=== PATIENT | female | born 1975 | race Caucasian/White ===

== ENCOUNTER 2017-06-12 09:34 | Inpatient (IN) | payer BC, OTHER ==
[~2017-06-12] VITALS: Ht 157.5 cm; Wt 74.4 kg
--- NOTE | 2017-06-12 18:11 | NUR ---
PRE ADMISSION Pt 41 y/o female admitted in intake. Pt came from home. Pt alert and oriented to name, place, and time. Perrla. Skin warm and dry to touch. Respirations even and unlabored. Bilateral hand tremors noted slightly. Pt appears anxious with pressured speech noted. Pt appears slightly disheveled. Initial cows=5. Pt was seen by MD. Educated pt on unit rules with acknowledgement. No distress noted. as=346/90 t=98.1 p=62 r=18 z4=830%@ra. Pt denies any history of sz. Pt states just recently dx with fibromyalgia this month 2016.
[2017-06-12] MEDS ORDERED: NICOTINE POLACRILEX 4 MG GUM-PK OF TEN BC PRN (18:30)
[2017-06-12] MEDS ORDERED: METHOCARBAMOL 750 MG TABLET PO PRN (18:30)
[2017-06-12] MEDS ORDERED: LORAZEPAM 1 MG TABLET PO PRN (18:30)
[2017-06-12] MEDS ORDERED: BUPRENORPHINE HCL 2 MG TAB.SUBL SL PRN (18:30)
[2017-06-12] MEDS ORDERED: ONDANSETRON 4 MG/2 ML VIAL IM PRN (18:30)
[2017-06-12] MEDS ORDERED: hydrALAZINE HCL 50 MG TABLET PO PRN (18:30)
[2017-06-12] MEDS ORDERED: LOPERAMIDE HCL 2 MG CAPSULE PO PRN ×2 (18:30)
[2017-06-12] MEDS ORDERED: NICOTINE 14 MG/24HR PATCH TD PRN (18:30)
[2017-06-12] MEDS ORDERED: MAGNESIUM HYDROXIDE 30 ML LIQUID UDC PO PRN (18:30)
[2017-06-12] MEDS ORDERED: DOCUSATE SODIUM 250 MG CAPSULE PO PRN (18:30)
[2017-06-12] MEDS ORDERED: DICYCLOMINE HCL 20 MG TABLET PO PRN (18:30)
[2017-06-12] MEDS ORDERED: MIRALAX 17 GM POWD.PACK PO PRN (18:30)
[2017-06-12 18:41] LABS: BASOPHILS # (AUTO) 0.1 K/uL (0.0-8.0); BASOPHILS % (AUTO) 0.3 % (0.0-2.0); EOSINOPHILS # (AUTO) 0.2 K/uL (0.0-0.7); EOSINOPHILS % (AUTO) 1.2 % (0.0-7.0); HEMATOCRIT 39.1 % (31.2-41.9); HEMOGLOBIN 13.1 g/dL (10.9-14.3); LYMPHOCYTES # (AUTO) 5.4 K/uL (20.0-40.0); LYMPHOCYTES % (AUTO) 26.6 % (20.5-51.5); MEAN CORPUSCULAR HEMOGLOBIN 29.2 uug (24.7-32.8); MEAN CORPUSCULAR HGB CONC 33 g/dL (32.3-35.6); MEAN CORPUSCULAR VOLUME 87.6 fL (75.5-95.3); MONOCYTES # (AUTO) 1.3 K/uL (2.0-10.0); MONOCYTES % (AUTO) 6.5 % (0.0-11.0); NEUTROPHILS # (AUTO) 13.3 K/uL (1.8-8.9); NEUTROPHILS % (AUTO) 65.4 % (38.5-71.5); PLATELET COUNT (AUTO) 367 K/uL (179-408); RED BLOOD CELL COUNT(AUTO) 4.47 MIL/uL (3.63-4.92); WHITE BLOOD COUNT (AUTO) 20.4 K/uL (3.8-11.8)
[2017-06-12 18:42] LABS: *URINE HCG, QUAL NEGATIVE (NEGATIVE)
[2017-06-12 18:59] LABS: ALANINE AMINOTRANSFERASE 20 U/L (14-59); ALKALINE PHOSPHATASE 61 U/L (50-136); ASPARTATE AMINOTRANSFERASE 14 U/L (15-37); BILIRUBIN,TOTAL 0.2 mg/dL (0.2-1.0); CARBON DIOXIDE 25 mmol/L (21-32); CHLORIDE 105 mmol/L (98-107); CHOLESTEROL 194 mg/dL (<200); CREATININE 1.1 mg/dL (0.6-1.3); GLUCOSE 98 mg/dL (74-106); HDL CHOLESTEROL 40 mg/dL (40-60); MAGNESIUM 2.1 mg/dL (1.8-2.4); POTASSIUM 3.8 mmol/L (3.5-5.1); TOTAL PROTEIN, SERUM 7.3 g/dL (6.4-8.2); TRIGLYCERIDES 312 MG/DL (30-150); UREA NITROGEN, BLOOD 14 mg/dL (7-18)
[2017-06-12 19:01] LABS: ETHANOL < 3 MG/DL (0-0)
[2017-06-12 20:00] VITALS: BP 142/79
--- NOTE | 2017-06-12 20:00 | NUR ---
ADMISSION NOTE : Pt. is 41 y/o female admitted on 06/12/2017 to [facility] for opiates dependency. She placed on 5 day Subutex taper , will be started on 06/13/2017. The patient denies a history of withdrawal-induced seizures, pt. denies history of SI/HI, denies history of audio and video hallucinations , her Primary care Provider is from [place], [place]. It is her first Detox. Pt. is Full Code, on Reg.Diet, allergic to Fish, PCN, Erythromycin. Pt. is on FALL precautions. The patient reports starting to use Vanderwagen 3 years ago and Tramadol 4 years ago because of body ache. She denies any periods of sobriety since starting these medications. She states the cause of her ongoing and frequent use have been due to difficulty coping with chronic pain, stress and treatment of negative withdrawal symptoms. She states her substance use has negatively impacted her life by impairing close relationships, negatively impacting her physical and mental health. She states that learning how to manage chronic pain, control impulses, cope with anxiety, and staying adherent to long-term treatment are barriers she will have to overcome to achieve full, long-term sobriety. Upon assessment, pt is alert and oriented x4 , the patient reported the following symptoms of withdrawal: anxiety, restlessness, felt tremors, difficulty concentrating, anhedonia. First dose of Subutex given. Pt is cooperative. Speech is clear and audible. Heart rate is regular. Pt denies chest pain or SOB. PERRLA, breathing is even and unlabored. Lung sounds clear in all lobes, abdomen is soft, pt complains of constipation related to opiate use. XG=398/99 , HR=62/min , UyD3=229% with RA, RR=16, Temp=98.1. Last BM on 06/11/17. Pt's skin is warm, dry and intact. Pt was oriented to room and unit. Pt. was able to provide UDS sample , see results in the PC chart. Safety measures in place : bed on lowest position with side rails x2 up for safety, call light within reach. Will continue to monitor closely and offer help. SUBSTANCE USE HISTORY : The patient reports starting to use hydrocodone three years ago years old and within 1 year became fully dependent on daily use. She is currently using up to 80-90 mg of hydrocodone on a daily basis. Last use was on the day prior to admission. She reports also using tramadol up to 400 mg on a daily basis, last consumed over two days prior to admission. TX HISTORY : This is her first Detox. Past medical history 1. Fibromyalgia 2. Migraine headache 3. Essential hypertension 4. Dyslipidemia 5. Allergic rhinitis 6. Gastroesophageal reflux disease 7. Anxiety disorder, unspecified 8. Insomnia, unspecified 9. Chronic tobacco use Past Surgical History Surgical history 1. Cholecystectomy 2. Tonsillectomy 3. Kidney stone removal, unspecified 4. Sinus surgery, unspecified 5. Lymphadenectomy, unspecified Past Family History Family history 1. Alcohol use disorder 2. Coronary artery disease 3. Diabetes mellitus type 2 4. Stomach Ca.
[2017-06-12 20:49] LABS: *AMPHETAMINE, URINE NEGATIVE (NEGATIVE); *BARBITURATE, URINE NEGATIVE (NEGATIVE); *CANNABINOID, URINE POSITIVE (NEGATIVE); *COCCAINE, URINE NEGATIVE (NEGATIVE); *OPIATE, URINE POSITIVE (NEGATIVE); *PHENCYCLIDINE SCREEN,URINE NEGATIVE (NEGATIVE)
[2017-06-12] MEDS ORDERED: PATIENT MAY USE OWN MED- MD OK PO SCH (21:00)
[2017-06-12] MEDS: GABAPENTIN 300 MG CAPSULE PO SCH (21:14)
[2017-06-12] MEDS: BUPRENORPHINE HCL 2 MG TAB.SUBL SL SCH ×2 (21:15→22:00)
[2017-06-12] MEDS ORDERED: ATORVASTATIN 20 MG TABLET PO SCH (21:30)
[2017-06-12] MEDS ORDERED: LORAZEPAM 1 MG TABLET PO SCH (22:00)
[2017-06-13] VITALS: BP 169/100
--- NOTE | 2017-06-13 | NUR ---
PRN VISTARIL, ZOFRAN, BENADRYL Pt. complains of increased level of anxiety, nausea, sleeplessness. PRN VISTARIL, ZOFRAN, BENADRYL given as ordered . Safety measures in place : bed on lowest position with side rails x2 up for safety, call light within reach. Will continue to monitor closely and offer help. Addendum: 06/13/17 at 0723 by LAUREN GRAHAM RN PRN Clonidine given because of HB=035/100
[2017-06-13] MEDS: ONDANSETRON ODT 4 MG TAB.RAPDIS SL PRN (00:16)
[2017-06-13] MEDS: CLONIDINE HCL 0.1 MG TABLET PO PRN ×2 (00:37→13:21)
[2017-06-13] MEDS: HYDROXYZINE PAMOATE 25 MG CAPSULE PO PRN ×2 (00:37→08:33)
--- NOTE | 2017-06-13 01:00 | NUR ---
RE-ASSESSMENT Pt. is sleeping, RR=16 unlabored and even. Safety measures in place : bed on lowest position with side rails x2 up for safety, call light within reach. Will continue to monitor closely and offer help.
[2017-06-13] MEDS ORDERED: ATOR20TA PO (01:35)
[2017-06-13] MEDS ORDERED: FLUT16SP NS (01:41)
[2017-06-13] MEDS ORDERED: LISI1TAB9 PO (01:42)
[2017-06-13] MEDS ORDERED: PANT40TA4 PO (01:42)
[2017-06-13] MEDS ORDERED: FENO160T PO (01:43)
[2017-06-13] MEDS ORDERED: AMIT10TA6 PO (01:43)
[2017-06-13] MEDS ORDERED: MONT10TA25 PO (01:44)
[2017-06-13] MEDS ORDERED: SUMA100T16 PO (01:44)
[2017-06-13] MEDS ORDERED: ERGO500040 PO (01:48)
[2017-06-13 04:00] VITALS: BP 128/69
--- NOTE | 2017-06-13 06:42 | NUR ---
END OF SHIFT NOTE : Pt. is 41 y/o female admitted on 06/12/2017 to [facility] for opiates dependency. She placed on 5 day Subutex taper , will be started on 06/13/2017. The patient denies a history of withdrawal-induced seizures, pt. denies history of SI/HI, denies history of audio and video hallucinations , her Primary care Provider is from [place], [place]. It is her first Detox. Pt. is Full Code, on Reg.Diet, allergic to Fish, PCN, Erythromycin. Pt. is on FALL precautions. Pt remains compliant with the treatment plan. PRN ZOFRAN, VISTARIL, ZOFRAN were given during my shift. V/S remain WNL. RR=16, even and unlabored, lungs clear upon auscultation, abdomen soft and non- distended. Pt denies nausea, vomiting and diarrhea at this moment. COWS taken when pt. was alert during the night, LAST COWS=5 at 0400 , YZMEAY=420hk, voided x1 , slept 5 hours. Safety measures in place : bed on lowest position with side rails x2 up for safety, call light within reach. Will continue to monitor closely and offer help.
--- NOTE | 2017-06-13 07:30 | NUR ---
START OF SHIFT Pt 41 y/o female admitted for opiate dependence. Pt received in room on bed with eyes closed resting, but easily arousable to name. Pt alert and oriented to name, place, and time. Perrla. Skin warm and moist to touch. Bilateral hand tremors noted. Pt appears slightly anxious this morning. It was reported that pt slept for 5 hours last night. Bed on lowest position with side rails up x2 up for safety. Call light within reach. No distress noted at this time.
[2017-06-13] MEDS: SUMATRIPTAN SUCCINATE 50 MG TABLET PO PRN (08:33)
[2017-06-13] MEDS: BUPRENORPHINE HCL 2 MG TAB.SUBL SL SCH ×4 (08:33→21:35)
[2017-06-13] MEDS: GABAPENTIN 300 MG CAPSULE PO SCH ×3 (08:33→21:34)
--- NOTE | 2017-06-13 08:42 | NUR ---
PRN Pt states feels anxious. Vistaril po prn per MD order given and tolerated well.
--- NOTE | 2017-06-13 08:42 | NUR ---
PRN Pt states has migraine. Emitrex po prn per MD order given and tolerated well.
[2017-06-13 08:54] VITALS: BP 128/74
[2017-06-13] MEDS: FLUTICASONE PROP NASAL SPRAY 16 GM BOTTLE NS SCH (09:00)
[2017-06-13] MEDS ORDERED: TUBERCULIN,PURIF.PROT.DERIV. 5 TU/0.1 ML TEST ID ONE (09:00)
[2017-06-13] MEDS ORDERED: PANTOPRAZOLE 40 MG PO SCH (09:00)
--- NOTE | 2017-06-13 09:30 | NUR ---
LAB Lab=20.3. aware.
--- NOTE | 2017-06-13 09:42 | NUR ---
TR BONNER Pt denies any migraine at this time.
--- NOTE | 2017-06-13 09:42 | NUR ---
TR BONNER Pt observed in room on bed with eyes closed resting, but easily arousable to name. No distress noted at this time.
[2017-06-13] MEDS: HCTZ PO SCH (10:18)
[2017-06-13] MEDS: LISINOPRIL PO SCH (10:18)
[2017-06-13 13:00] VITALS: BP 177/91
--- NOTE | 2017-06-13 13:23 | NUR ---
PRN Pt with nu=376/92. Catapres po prn per MD order given and tolerated well.
--- NOTE | 2017-06-13 14:23 | NUR ---
PRN EVAL Pt with az=363/62
[2017-06-13 16:00] VITALS: BP 110/62
--- NOTE | 2017-06-13 18:38 | NUR ---
END OF SHIFT Pt 41 y/o female admitted for opiate dependence. Pt alert and oriented to name, place, and time. Perrla. Skin warm and moist to touch. Respirations even and unlabored. Bilateral hand tremors noted. Pt states with episodes of chills and sweats throughout the day. Pt also states with episodes of anxiety throughout the day. Pt observed mostly isolative to room throughout the day. Pt selective with group activity. Pt seen MD today. Pt medication compliant and tolerated well. No ASE noted. Bed on lowest position with side rails x2 up for safety. Call light within reach. No distress noted at this time.
--- NOTE | 2017-06-13 19:15 | NUR ---
START OF SHIFT NOTE : Pt. is 41 y/o female admitted on 06/12/2017 to [facility] for opiates dependency. She placed on 5 day Subutex taper , will be started on 06/13/2017. The patient denies a history of withdrawal-induced seizures, pt. denies history of SI/HI, denies history of audio and video hallucinations. Pt. is Full Code, on Reg.Diet, allergic to Fish, PCN, Erythromycin. Pt. is on FALL precautions. Pt. is resting in ther room, no complains at this time. Safety measures in place : bed on lowest position with side rails x2 up for safety, call light within reach. Will continue to monitor closely and offer help.
[2017-06-13 20:00] VITALS: BP 120/73
--- NOTE | 2017-06-14 06:50 | NUR ---
END OF SHIFT NOTE : Pt. is 41 y/o female admitted on 06/12/2017 to [facility] for opiates dependency. She placed on 5 day Subutex taper , will be started on 06/13/2017. The patient denies a history of withdrawal-induced seizures, pt. denies history of SI/HI, denies history of audio and video hallucinations. Pt. is Full Code, on Reg.Diet, allergic to Fish, PCN, Erythromycin. Pt. is on FALL precautions. Pt remains compliant with the treatment plan. No PRNs were given during my shift. V/S remain WNL. RR=16, even and unlabored, lungs clear upon auscultation, abdomen soft and non- distended. Pt denies nausea, vomiting and diarrhea COWS taken when pt. was alert during the night, LAST COWS=3 at 0400 , INTAKE= 1000 ml, voided x 2, slept 6 hours. Safety measures in place : bed on lowest position with side rails x2 up for safety, call light within reach. Will continue to monitor closely and offer help.
--- NOTE | 2017-06-14 07:30 | NUR ---
START OF SHIFT Rcvd endorsement from ongoing nurse, client is in room, she is a/o x4. Client presents with depressed mood, flat affect, clammy skin, and dilated pupils. She reports no appetite, chills, stomach cramps, and fatigue. Encourage client to attend to group therapy for skills to maintain sober. Encourage client to increase PO fluid intake as tolerated to facilitate detox. Client is a 41 y/o female, admitted to [facility] for withdrawal from prescription opioids. She is on a 5 day Subutex taper, tolerating well (day 2). Last COWS 3 @ 2000. Client had an uneventful night, she slept 6 hrs. She reports allergy to PCN, fish, and erythromycin, full code, regular diet. Side rails x 2 up, universal precautions. Call light within reach.
[2017-06-14] MEDS: PANTOPRAZOLE 40 MG PO SCH (07:35)
[2017-06-14 08:00] VITALS: BP 121/76
[2017-06-14] MEDS: BUPRENORPHINE HCL 2 MG TAB.SUBL SL SCH ×3 (08:00→20:04)
[2017-06-14] MEDS: GABAPENTIN 300 MG CAPSULE PO SCH ×3 (08:00→20:04)
[2017-06-14] MEDS: LISINOPRIL PO SCH (08:00)
[2017-06-14] MEDS: HCTZ PO SCH (08:00)
[2017-06-14] MEDS: FLUTICASONE PROP NASAL SPRAY 16 GM BOTTLE NS SCH (09:53)
[2017-06-14] MEDS: ONDANSETRON ODT 4 MG TAB.RAPDIS SL PRN ×2 (10:26→19:55)
--- NOTE | 2017-06-14 10:26 | NUR ---
PRN Zofran 4mg SL administered for nausea, no episodes of emesis. Saltine crackers and autumn linnea at bedside. Call light within reach.
--- NOTE | 2017-06-14 10:56 | NUR ---
Reassessment PRN Zofran 4mg SL effective, client reports relief from nausea.
[2017-06-14 12:00] VITALS: BP 103/60
[2017-06-14 12:11] LABS: HEPATITIS B SURFACE AG Negative (Negative)
[2017-06-14] MEDS: DICYCLOMINE HCL 20 MG TABLET PO SCH ×2 (14:17→20:04)
[2017-06-14] MEDS: BACLOFEN 10 MG TABLET PO SCH ×2 (14:17→20:04)
[2017-06-14 16:55] VITALS: BP 126/76
--- NOTE | 2017-06-14 19:30 | NUR ---
END OF SHIFT Client is a 41 y/o female, a/o x 4, admitted to [facility] for withdrawal from prescription opioids. She is on a 5 day Subutex taper, tolerating well (day 2). Last COWS 8 @ 1999. PRN Zofran 4mg SL for nausea, noted effective. She reports allergy to PCN, fish, and erythromycin, full code, regular diet. Side rails x 2 up, universal precautions. Call light within reach.
--- NOTE | 2017-06-14 19:30 | NUR ---
START OF SHIFT Pt is a 41 y/o female admitted on 06/12/17 for opiate dependence. Pt is full code, regular diet, allergic to seafood and bees and on fall precautions. Pt reports PMH of fibromyalgia, HTN, hyperlipidemia. Pt is on a 5 day Ativan taper that started on 06/13/17, tolerating well. Upon assessment pt presents with headache 5/10, anxiety, restlessness, nausea with no vomiting, stomach cramps, flushed skin, increased HR, enlarged pupils, intermittent tremors. Pt reports last BM was 3 days ago and requests medication for constipation. Respirations 16, even and unlabored. Denies V/D. Denies chest pain or SOB. Medications due. Safety measures in place. Call light within reach. Will continue to monitor.
[2017-06-14] MEDS: IBUPROFEN 600 MG TABLET PO PRN (19:55)
[2017-06-14] MEDS: MAG HYDROX/AL HYDROX/SIMETH 30 ML LIQUID UDC PO PRN (19:56)
--- NOTE | 2017-06-14 19:56 | NUR ---
PRN MAALOX, MOTRIN AND ZOFRAN ODT ADMINISTRATION Pt reports not having a BM in three days, requests medications for constipation. Pt also reports headache 5/10 and nausea without vomiting. Safety measures in place. Call light within reach. Will continue to monitor. Addendum: 06/15/17 at 0118 by ADRIEN AGRAWAL RN MAALOX ADMINISTERED FOR HEARTBURN
[2017-06-14 20:00] VITALS: BP 124/89
--- NOTE | 2017-06-14 20:26 | NUR ---
LE ODT REASSESSMENT Pt reports nausea has ceased. Safety measures in place. Call light within reach. Will continue to monitor.
--- NOTE | 2017-06-14 20:56 | NUR ---
MOTRIN AND MAALOX REASSESSMENT Pt reports headache has ceased. Will continue to monitor for BM. Safety measures in place. Call light within reach. Addendum: 06/15/17 at 0119 by ADRIEN AGRAWAL RN PT REPORTS IMPROVEMENT IN HEARTBURN
[2017-06-15] VITALS: BP 137/77
--- NOTE | 2017-06-15 | NUR ---
COWS DEFERRED Pt laying in bed with eyes closed, COWS deferred, to be assessed when pt is awake per orders. Respirations 16, even and unlabored. Safety measures in place. Call light within reach. Will continue to monitor.
[2017-06-15] MEDS: SUMATRIPTAN SUCCINATE 50 MG TABLET PO PRN (01:39)
--- NOTE | 2017-06-15 01:39 | NUR ---
PRN IMITREX ADMINISTRATION Pt reports having a migraine 02/12. Safety measures in place. Call light within reach. Will continue to monitor.
--- NOTE | 2017-06-15 02:39 | NUR ---
PRN IMITREX REASSESSMENT Pt is laying in bed with eyes closed, respirations 16, even and unlabored. Will continue to monitor for headache when pt is fully awake.
[2017-06-15 04:00] VITALS: BP 118/64
[2017-06-15] MEDS: PANTOPRAZOLE 40 MG PO SCH (07:17)
--- NOTE | 2017-06-15 07:23 | NUR ---
END OF SHIFT Pt is a 41 y/o female admitted on 06/12/17 for opiate dependence. Pt is full code, regular diet, allergic to seafood, bees and erythromycin and on fall precautions. Pt reports PMH of fibromyalgia, HTN, hyperlipidemia. Pt is on a 5 day Ativan taper that started on 06/13/17, tolerating well. Pt presented with headache 5/10, anxiety, restlessness, nausea with no vomiting, stomach cramps, flushed skin, increased HR, enlarged pupils, intermittent tremors. Scheduled medications and PRN Maalox, Motrin, Zofran and Imitrex administered, effective in S/S of withdrawal as verbalized by pt. Last COWS 8 at 2000. Pt slept 7 hours. Intake 1250 ml, void x 5, stool x 0. Safety measures in place. Call light within reach. Pts needs have been met. Endorsed to day shift nurse.
[2017-06-15 08:00] VITALS: BP 113/60
--- NOTE | 2017-06-15 08:04 | NUR ---
Start of shift note; Received report from night nurse. Patient is a 41 year old female admitted on 06/12/17 for Opiate dependence. Patient was placed on a 5 day Subutex taper, no adverse reactions noted. Patient reported history of fibromyalgia , hypertension and high cholesterol. Patient's last COWS score is 8 per endorsement. Patient is on fall precautions. Bed in lowest position, call light within reach. Bed in lowest position, call light within reach. Will continue to monitor patient. Will continue to monitor patient.
[2017-06-15] MEDS: HCTZ PO SCH (08:58)
[2017-06-15] MEDS: GABAPENTIN 300 MG CAPSULE PO SCH ×3 (08:58→21:08)
[2017-06-15] MEDS: LISINOPRIL PO SCH (08:58)
[2017-06-15] MEDS: BACLOFEN 10 MG TABLET PO SCH ×3 (08:58→21:08)
[2017-06-15] MEDS: DICYCLOMINE HCL 20 MG TABLET PO SCH ×3 (08:59→21:08)
[2017-06-15] MEDS: FLUTICASONE PROP NASAL SPRAY 16 GM BOTTLE NS SCH (08:59)
[2017-06-15] MEDS ORDERED: BUPRENORPHINE HCL 2 MG TAB.SUBL SL SCH (09:00)
[2017-06-15 12:00] VITALS: BP 139/89
--- NOTE | 2017-06-15 13:42 | NUR ---
Therapist prompted client about group times. Client stated she will attend all groups today.
[2017-06-15] MEDS: ONDANSETRON ODT 4 MG TAB.RAPDIS SL PRN (15:04)
--- NOTE | 2017-06-15 15:04 | NUR ---
PRN ZOFRAN Pt reports feeling nauseas, denies episodes of emesis. Zofran 4mg SL administered as ordered. Primary nurse to reassess.
[2017-06-15] MEDS: BUPRENORPHINE HCL 2 MG TAB.SUBL SL SCH ×2 (15:14→21:08)
[2017-06-15 16:00] VITALS: BP 164/92
--- NOTE | 2017-06-15 16:04 | NUR ---
Re-assessment; Patient denies nausea at this time. PRN Zofran noted to be effective.
[2017-06-15] MEDS: CLONIDINE HCL 0.1 MG TABLET PO PRN (16:46)
--- NOTE | 2017-06-15 16:47 | NUR ---
PRN medication; Patient's BP is 162/92, PRN Clonidine 0.1mg PO given for BP >160/100. Will closely monitor patient for effectiveness of medication.
--- NOTE | 2017-06-15 17:47 | NUR ---
Re-assessment; Patient 's BP is now 132/89. PRN clonidine noted to be effective.
--- NOTE | 2017-06-15 18:18 | NUR ---
End of shift note; Patient is AOX4. Patient is a 41 year old female admitted on 06/12/17 for Opiate dependence. Patient was placed on a 5 day Subutex taper, no adverse reactions noted. Patient reported history of fibromyalgia , hypertension and high cholesterol. Patient's last COWS score is 5 at 1600. Patient is on fall precautions. Bed in lowest position, call light within reach. Bed in lowest position, call light within reach. Met all needs.
--- NOTE | 2017-06-15 19:30 | NUR ---
START OF SHIFT Pt is a 41 y/o female admitted on 06/12/17 for opiate dependence. Pt is full code, regular diet, allergic to seafood, bees and erythromycin and on fall precautions. Pt reports PMH of fibromyalgia, HTN, hyperlipidemia. Pt is on a 5 day Ativan taper that started on 06/13/17, tolerating well. Upon assessment pt presents with intermittent headache, moderate anxiety, restlessness, stomach cramps, flushed skin, intermittent tremors. Respirations 16, even and unlabored. Denies N/V/D. Denies chest pain or SOB. Medications due. Safety measures in place. Call light within reach. Will continue to monitor.
[2017-06-15 20:00] VITALS: BP 117/64
[2017-06-15] MEDS: HYDROXYZINE PAMOATE 25 MG CAPSULE PO PRN (21:08)
[2017-06-16] VITALS: BP 107/66
--- NOTE | 2017-06-16 | NUR ---
COWS DEFERRED Pt laying in bed with eyes closed, COWS deferred, to be assessed when pt is awake per orders. Respirations 18, even and unlabored. Safety measures in place. Call light within reach. Will continue to monitor.
--- NOTE | 2017-06-16 04:00 | NUR ---
COWS DEFERRED AND VITALS REFUSED Pt laying in bed with eyes closed, COWS deferred, to be assessed when pt is awake per orders. Vitals refused. Respirations 16, even and unlabored. Safety measures in place. Call light within reach. Will continue to monitor.
[2017-06-16] MEDS: PANTOPRAZOLE 40 MG PO SCH (07:00)
--- NOTE | 2017-06-16 07:13 | NUR ---
END OF SHIFT Pt is a 41 y/o female admitted on 06/12/17 for opiate dependence. Pt is full code, regular diet, allergic to seafood, bees and erythromycin and on fall precautions. Pt reports PMH of fibromyalgia, HTN, hyperlipidemia. Pt is on a 5 day Ativan taper that started on 06/13/17, tolerating well. Pt presented with intermittent headache, moderate anxiety, restlessness, stomach cramps, flushed skin, intermittent tremors. Scheduled medications adminsitered, effecitve in S/S of withdrawal as verbalized by pt. No PRNs administered. Last COWS 5 at 1999. Pt slept 7 hours. Intake 1047 ml, void x 2, stool x 0. Safety measures in place. Call light within reach. Pts needs have been met. Endorsed to day shift nurse.
--- NOTE | 2017-06-16 07:38 | NUR ---
Start of shift note; Received report from night nurse. Patient is a 41 year old female admitted on 06/12/17 for Opiate dependence. Patient was placed on a 5 day Subutex taper, no adverse reactions noted. Patient reported history of fibromyalgia , hypertension and high cholesterol. Patient's last COWS score is 5 per endorsement. Patient slept for 7 hours.Patient is on fall precautions. Bed in lowest position, call light within reach. Bed in lowest position, call light within reach. Will continue to monitor patient. Will continue to monitor patient.
[2017-06-16 08:00] VITALS: BP 96/62
[2017-06-16] MEDS: DICYCLOMINE HCL 20 MG TABLET PO SCH ×3 (08:44→21:44)
[2017-06-16] MEDS: BUPRENORPHINE HCL 2 MG TAB.SUBL SL SCH ×3 (08:44→21:44)
[2017-06-16] MEDS: BACLOFEN 10 MG TABLET PO SCH ×3 (08:45→21:44)
[2017-06-16] MEDS: FLUTICASONE PROP NASAL SPRAY 16 GM BOTTLE NS SCH (08:45)
[2017-06-16] MEDS: HCTZ PO SCH (08:45)
[2017-06-16] MEDS: LISINOPRIL PO SCH (08:45)
[2017-06-16] MEDS: GABAPENTIN 300 MG CAPSULE PO SCH ×3 (08:45→21:43)
[2017-06-16 12:00] VITALS: BP 132/72
[2017-06-16] MEDS: DOCUSATE SODIUM 250 MG CAPSULE PO SCH (12:34)
[2017-06-16] MEDS ORDERED: MIRALAX 17 GM POWD.PACK PO ONE (13:00)
[2017-06-16 16:00] VITALS: BP 130/92
--- NOTE | 2017-06-16 17:59 | NUR ---
End of shift note; Patient is AOX4. Patient is a 41 year old female admitted on 06/12/17 for Opiate dependence. Patient was placed on a 5 day Subutex taper, no adverse reactions noted. Patient reported history of fibromyalgia , hypertension and high cholesterol. Patient's last COWS score is 3 at 1600. Patient is on fall precautions. Patient remained compliant with treatment plan and medication regime. Medications noted to be effective in reducing withdrawal symptoms. Bed in lowest position, call light within reach. Met all needs.
[2017-06-16 20:00] VITALS: BP 139/88
--- NOTE | 2017-06-16 20:00 | NUR ---
Start of Shift Notes Received a 41 y/o female admitted on 06/12/17 for opiate dependence. Px is full code, regular diet, allergic to seafood, bees and erythromycin and on fall precautions. PMHx of fibromyalgia, HTN, hyperlipidemia. Px is on a 5 day Ativan taper that started on 06/13/17, tolerating well. During the rounds at 1999, Px verbalized H/A 7/10, and anxiety is mild. Px wanted pill to help her sleep. Safety measures in place. Bed on lowest position, side rails up 2x, and call light within reach. We'll continue to monitor.
[2017-06-16] MEDS: IBUPROFEN 600 MG TABLET PO PRN (21:43)
[2017-06-16] MEDS: diphenhydrAMINE 50 MG CAPSULE PO PRN (21:43)
[2017-06-16] MEDS: HYDROXYZINE PAMOATE 25 MG CAPSULE PO PRN (21:43)
--- NOTE | 2017-06-16 21:43 | NUR ---
PRN meds Px complained of H/A / and px wanted pill to help her sleep tonight. Motrin 600 mg/tab, 1 tab; Vistaril 25 mg/cap, 1 cap and Benadryl 50 mg/cap, 1 cap given PO as PRN meds. We'll continue to monitor.
[2017-06-17] VITALS: BP 111/69
[2017-06-17 04:00] VITALS: BP 118/71
--- NOTE | 2017-06-17 04:00 | NUR ---
COWS deferred COWS deferred due to the px is asleep, to assess if the px is awake per doctor's order. We'll continue to monitor.
[2017-06-17] MEDS: PANTOPRAZOLE 40 MG PO SCH (06:35)
--- NOTE | 2017-06-17 06:56 | NUR ---
End of Shift Notes 41 y/o female admitted on 06/12/17 for opiate dependence. Px is full code, regular diet, allergic to seafood, bees and erythromycin and on fall precautions. PMHx of fibromyalgia, HTN, hyperlipidemia. Px is on a 5 day Ativan taper that started on 06/13/17, tolerating well. During the shift, Px complained of H/A 7/10 and px wanted pill to help her sleep tonight. Motrin 600 mg/tab, 1 tab; Vistaril 25 mg/cap, 1 cap and Benadryl 50 mg/cap, 1 cap given PO as PRN meds. Oral intake of 800 ml, voided 2x, No BM. Slept for 6 hours[address] Safety measures in place. Bed on lowest position, side rails up 2x, and call light within reach. We'll continue to monitor.
--- NOTE | 2017-06-17 07:19 | NUR ---
Start of shift note; Received report from night nurse. Patient is a 41 year old female admitted on 06/12/17 for Opiate dependence. Patient was placed on a 5 day Subutex taper, no adverse reactions noted. Patient reported history of fibromyalgia , hypertension and high cholesterol. Patient's last COWS score is 2 per endorsement. Patient slept for 6 hours.Patient is on fall precautions. Bed in lowest position, call light within reach. Bed in lowest position, call light within reach. Will continue to monitor patient. Will continue to monitor patient.
[2017-06-17 08:00] VITALS: BP 111/67
[2017-06-17] MEDS: LISINOPRIL PO SCH (08:51)
[2017-06-17] MEDS: HCTZ PO SCH (08:51)
[2017-06-17] MEDS: DICYCLOMINE HCL 20 MG TABLET PO SCH ×3 (08:52→20:38)
[2017-06-17] MEDS: BACLOFEN 10 MG TABLET PO SCH ×3 (08:52→20:38)
[2017-06-17] MEDS: FLUTICASONE PROP NASAL SPRAY 16 GM BOTTLE NS SCH (08:52)
[2017-06-17] MEDS: GABAPENTIN 300 MG CAPSULE PO SCH ×3 (08:52→20:38)
[2017-06-17] MEDS: DOCUSATE SODIUM 250 MG CAPSULE PO SCH (08:52)
[2017-06-17] MEDS ORDERED: BUPRENORPHINE HCL 2 MG TAB.SUBL SL SCH (09:00)
[2017-06-17 12:00] VITALS: BP 113/78
[2017-06-17] MEDS ORDERED: DICY20TA28 PO (15:25)
[2017-06-17] MEDS ORDERED: METH-406 PO (15:25)
[2017-06-17] MEDS ORDERED: DIPH50CA37 PO (15:25)
[2017-06-17] MEDS ORDERED: HYDR-3895 PO (15:25)
[2017-06-17] MEDS ORDERED: GABA-534 PO (15:25)
[2017-06-17] MEDS ORDERED: IBUP-1955 PO (15:25)
[2017-06-17 16:00] VITALS: BP 130/90
--- NOTE | 2017-06-17 18:16 | NUR ---
End of shift note; Patient is AOX4. Patient is a 41 year old female admitted on 06/12/17 for Opiate dependence. Patient was placed on a 5 day Subutex taper, no adverse reactions noted. Patient reported history of fibromyalgia , hypertension and high cholesterol. Patient is on fall precautions. Patient remained compliant with treatment plan and medication regime. Medications noted to be effective in reducing withdrawal symptoms. Patient is medically cleared for discharge tomorrow. Bed in lowest position, call light within reach. Met all needs.
--- NOTE | 2017-06-17 19:30 | NUR ---
305 Start of Shift Notes Received a 41 y/o female admitted on 06/12/17 for opiate dependence. Px is full code, regular diet, allergic to seafood, bees and erythromycin and on fall precautions. PMHx of fibromyalgia, HTN, hyperlipidemia. Px is on a 5 day Ativan taper that started on 06/13/17, tolerating well. During the rounds at 1930, Px verbalized H/A 6/10, and anxiety is mild. Px wanted pill to help her sleep. Safety measures in place. Bed on lowest position, side rails up 2x, and call light within reach. We'll continue to monitor.
[2017-06-17 20:00] VITALS: BP 152/87
[2017-06-17] MEDS: diphenhydrAMINE 50 MG CAPSULE PO PRN (20:38)
[2017-06-17] MEDS: IBUPROFEN 600 MG TABLET PO PRN (20:38)
--- NOTE | 2017-06-17 20:38 | NUR ---
PRN meds Px asked for Motrin for H/A of 6/10, and pill to help her sleep. Motrin 600 mg/tab, 1 tab; Benadryl 50 mg/cap, 1 cap; Vistaril 25 mg/cap, 1 cap; Clonidine 0.1 mg/tab, 1 tab given PO as PRN meds. We'll continue to monitor.
[2017-06-17] MEDS: HYDROXYZINE PAMOATE 25 MG CAPSULE PO PRN (20:39)
[2017-06-17] MEDS: CLONIDINE HCL 0.1 MG TABLET PO PRN (20:39)
[2017-06-17] MEDS: MAG HYDROX/AL HYDROX/SIMETH 30 ML LIQUID UDC PO PRN (21:13)
--- NOTE | 2017-06-17 21:13 | NUR ---
PRN Maalox Px complained of stomach gas. Maalox 30 ml given PO as PRN med. We'll continue to monitor.
[2017-06-18] VITALS: BP 108/62
[2017-06-18 04:00] VITALS: BP 98/60
--- NOTE | 2017-06-18 04:00 | NUR ---
COWS deferred COWS deferred at 0000 and 0400 due to the px is asleep, to assess if the px is awake per doctor's order. We'll continue to monitor.
[2017-06-18] MEDS: PANTOPRAZOLE 40 MG PO SCH (06:32)
--- NOTE | 2017-06-18 07:11 | NUR ---
End of Shift Notes 41 y/o female admitted on 06/12/17 for opiate dependence. Px is full code, regular diet, allergic to seafood, bees and erythromycin and on fall precautions. PMHx of fibromyalgia, HTN, hyperlipidemia. To be D/C today, 06/18/17. During the shift, Px verbalized H/A 6/10, and anxiety is mild. Px wanted pill to help her sleep. Motrin 600 mg/tab, 1 tab; Benadryl 50 mg/cap, 1 cap; Vistaril 25 mg/cap, 1 cap; Clonidine 0.1 mg/tab, 1 tab given PO as PRN meds. At 2112, Px complained of stomach gas. Maalox 30 ml given PO as PRN med. Oral intake of 1 L, voided 2x, No BM. Slept for 7.5 hours. Safety measures in place. Bed on lowest position, side rails up 2x, and call light within reach. We'll continue to monitor. Endorsed to AM shift nurse.
[2017-06-18 08:00] VITALS: BP 110/73
[2017-06-18] MEDS: HCTZ PO SCH (08:24)
[2017-06-18] MEDS: LISINOPRIL PO SCH (08:24)
[2017-06-18] MEDS: DOCUSATE SODIUM 250 MG CAPSULE PO SCH (08:24)
[2017-06-18] MEDS: FLUTICASONE PROP NASAL SPRAY 16 GM BOTTLE NS SCH (08:24)
[2017-06-18] MEDS: BACLOFEN 10 MG TABLET PO SCH (08:24)
[2017-06-18] MEDS: GABAPENTIN 300 MG CAPSULE PO SCH (08:24)
[2017-06-18] MEDS: DICYCLOMINE HCL 20 MG TABLET PO SCH (08:24)
--- NOTE | 2017-06-18 09:14 | NUR ---
START OF SHIFT Received report from psychometrician nurse. Patient is 41 year old female admitted for medically supervised withdrawal from prescription opiods. Patient is full code with allergies to penicillin, erythromycin base ands fish derived. Alert and oriented X4. On assessment this AM: COWS: 1. Denies SOB, chest pain. Patients vitals signs WNL. Reports mild anxiety. Denies stuffy nose, sweating, body aches, stomach cramps, nausea, vomiting, diarrhea, tremors and goosebumps. Compliant with AM meds. No PRN give. Tolerated breakfast without n/v and consumed 100%. Patient has steady gait. Encouraged to attend group meetings today. Will continue to monitor patient. Pending discharge today.
--- NOTE | 2017-06-18 10:55 | NUR ---
DISCHARGE NOTE: Patient is in stable condition, vital signs WNL. Patient is alert and oriented X4. Patient denies any suicidal or homicidal ideations. Patient was discharged to [facility] from [facility] on 06/16/17 at 1055am. Patient was picked up and left the facility with all her belongings and prescriptions.
== END 2017-06-18 10:55 | disposition other institution (70) | DRG 895 ==
LOC: SRC 17:25
PROVIDERS: ADMIT Internal Medicine; ATTEND Internal Medicine
PROC: HZ2ZZZZ Detoxification Services for Substance Abuse Treatment (ICD-10-PCS; principal; 2017-06-12)
PROC: HZ41ZZZ Group Counseling for Substance Abuse Treatment, Behavioral (ICD-10-PCS; 2017-06-14)
PROC: HZ31ZZZ Individual Counseling for Substance Abuse Treatment, Behavioral (ICD-10-PCS; 2017-06-15)
DX: F11.23 Opioid dependence with withdrawal (principal); D72.829 Elevated white blood cell count, unspecified; E55.9 Vitamin D deficiency, unspecified; F12.90 Cannabis use, unspecified, uncomplicated; E78.5 Hyperlipidemia, unspecified; G43.909 Migraine, unspecified, not intractable, without status migrainosus; G89.29 Other chronic pain; M79.7 Fibromyalgia; G47.00 Insomnia, unspecified; Z90.49 Acquired absence of other specified parts of digestive tract; Z87.442 Personal history of urinary calculi; F17.210 Nicotine dependence, cigarettes, uncomplicated; K21.9 Gastro-esophageal reflux disease without esophagitis; J30.2 Other seasonal allergic rhinitis; Z83.3 Family history of diabetes mellitus; Z82.49 Family history of ischemic heart disease and other diseases of the circulatory system; Z81.1 Family history of alcohol abuse and dependence; F41.9 Anxiety disorder, unspecified; K59.03 Drug induced constipation
CPT/HCPCS: 36415; 70030-TC; 80307; 80349; 80361; 83735; 84443; 84703; 85025; 86580; 86592; 86705; 86803; 87340; 87806; G0480; J3535; Q0162; Q0163